=== PATIENT | male | born 1955 | race Caucasian/White ===

== ENCOUNTER → 2025-06-14 | Outpatient (CLI) | payer MEDICARE, SELFPAY ==
--- OUTSIDE RECORDS SUMMARY | 2025-05-25 07:09 | XMS RPT_ITS ---
Author Name Auto Generated Organization OH[facility] Care Team Providers Care Furnace Checker Name Role Phone ANNI MORALES DO Primary Care Unavailable HARPREET JEAN-BAPTISTE DO Attending Unavailable ANNI MORALES DO Primary Care Unavailable ANNI MORALES DO Attending Unavailable PROBLEMS DATE TYPE CONDITION / CODE ATTENDING STATUS [facility] 05/25/2025 Final Diagnosis (Discharge) Encounter for screening for cardiovascular disorders / Z13.6(ICD-10) ANNI MORALES DO [facility] 05/25/2025 Final Diagnosis (Discharge) Atherosclerosis of aorta / I70.0(ICD-10) ANNI MORALES DO [facility] 05/25/2025 Final Diagnosis (Discharge) Unspecified atherosclerosis of [place] arteries of extremities, bilateral legs / I70.203(ICD-10) ANNI MORALES DO [facility] 05/21/2025 Admitting Diagnosis Gross hematuria / R31.0(ICD-10) HARPREET JEAN-BAPTISTE DO [facility] PROCEDURES No Procedure Records Found RESULTS CBC Collected: 7:31 AM Status: F Source: [facility] TYPE CODE TESTS RESULT OUT OF RANGE REFERENCE UNITS LAB WBC(LOINC) WBC 3.3 Low 4.5-10.8 10 3/mcL LAB RBCCT(LOINC) RBC 4.66 4.50-6.00 10 6/mcL LAB HGB(LOINC) Hgb 14.8 13.0-17.5 G/dL LAB HCT(LOINC) Hct 43.3 40.0-52.0 % LAB MCV(LOINC) MCV 92.8 81.0-100.0 fL LAB MCH(LOINC) MCH 31.8 27.0-33.0 pg LAB MCHC(LOINC) MCHC 34.2 32.0-36.0 G/dL LAB RDW(LOINC) RDW 14.5 11.5-15.5 % LAB PLT(LOINC) Platelet 147 Low 150-450 10 3/mcL LAB MPV(LOINC) MPV 9.0 6.4-10.5 fL Performed By: #### LIPID, CB C, A1C, GFR, ANEU, FT4, ADIFF, PSA, TSHR, CMP #### [address] [address] .AUTO DIFF Collected: 05/25/2025 7:31 AM Status: F Source: [facility] TYPE CODE TESTS RESULT OUT OF RANGE REFERENCE UNITS LAB BURKE(LOINC) Neutrophil % 38.5 Low 50.0-75.0 % LAB LYM(LOINC) Lymphocyte % 44.3 High 20.0-40.0 % LAB MON(LOINC) Monocyte % 11.7 2.0-13.0 % LAB EO(LOINC) Eosinophil % 4.8 0.0-6.0 % LAB BAS(LOINC) Basophil % 0.7 0.0-2.5 % LAB ABLYM(LOINC) Lymphocyte, Absolute 1.5 0.9-4.3 10 3/mcL LAB TUAN(LOINC) Monocyte, Absolute 0.4 0.1-1.4 10 3/mcL LAB AEOS(LOINC) Eosinophil, Absolute 0.2 0.0-0.7 10 3/mcL LAB ABAS(LOINC) Basophil, Absolute 0.0 0.0-0.3 10 3/mcL Performed By: #### LIPID, CB C, A1C, GFR, ANEU, FT4, ADIFF, PSA, TSHR, CMP #### [address] [address] .NEUABS Collected: 7:31 AM Status: F Source: [facility] TYPE CODE TESTS RESULT OUT OF RANGE REFERENCE UNITS LAB ANEU(LOINC) Neutrophil, Absolute 1.3 Low 2.3-8.1 10 3/mcL Performed By: #### LIPID, CB C, A1C, GFR, ANEU, FT4, ADIFF, PSA, TSHR, CMP #### [id number] [place], [place] [address] A1C Collected: 7:31 AM Status: F Source: [facility] TYPE CODE TESTS RESULT OUT OF RANGE REFERENCE UNITS LAB A1C(LOINC) Hgb A1c 5.6 4.3-6.4 % LAB eAG(LOINC) Est Avg Glucose 114 mg/dL Result Comment: Estimated Av erage Glucose calculated by equation ((28.7xA1C)- 46.7) Estimated average glucose (eAG) is a calculated value from Hemoglobin A1C and is accounts receivable representative of the average blood glucose level in the last 2-3 month period. Normal range: less than 114 mg/dL Performed By: #### LIPID, CB C, A1C, GFR, ANEU, FT4, ADIFF, PSA, TSHR, CMP #### [address] [place], [place] [address] CMP Collected: 05/25/2025 7:31 AM Status: F Source: [facility] TYPE CODE TESTS RESULT OUT OF RANGE REFERENCE UNITS LAB GLU(LOINC) Glucose Level 98 80-115 mg/dL LAB NA(LOINC) Sodium Level 140 136-145 mmol/L LAB K(LOINC) Potassium Level 4.0 3.5-5.1 mmol/L LAB CL(LOINC) Chloride 105 98-107 mmol/L LAB CO2(LOINC) CO2 31 23-31 mmol/L LAB EBAL(LOINC) Electrolyte Balance 4.0 4.0-15.0 mEq/L LAB BUN(LOINC) BUN 23 High 7-18 mg/dL LAB CRE(LOINC) Creatinine Lvl (s) 0.88 0.67-1.17 mg/dL LAB BC(LOINC) BUN/Creatinine Ratio 26 7-27 ratio LAB CA(LOINC) Calcium Lvl 8.9 8.4-10.2 mg/dL LAB PROT(LOINC) Total Protein 6.7 6.4-8.2 G/dL LAB ALB(LOINC) Albumin Level 3.5 3.4-4.8 G/dL LAB GLB(LOINC) Globulin 3.2 2.7-4.4 G/dL LAB AG(LOINC) A/G Ratio 1.1 1.1-2.5 ratio LAB BILT(LOINC) Bili Total 0.6 0.2-1.0 mg/dL Result Comment: Use of this assay is not recommended for patients undergoing treatment with eltrombopag due to the potential for falsely elevated results. LAB AP(LOINC) Alk Phos 66 40-135 U/L LAB AST(LOINC) AST/SGOT 21 10-40 U/L LAB ALT(LOINC) ALT/SGPT 29 16-63 U/L Performed By: #### LIPID, CB C, A1C, GFR, ANEU, FT4, ADIFF, PSA, TSHR, CMP #### [address] [address] TSHR Collected: 7:31 AM Status: F Source: [facility] TYPE CODE TESTS RESULT OUT OF RANGE REFERENCE UNITS LAB TSH([facility]) TSH 6.58 High 0.36-3.74 mcIU/mL Performed By: #### LIPID, CB C, A1C, GFR, ANEU, FT4, ADIFF, PSA, TSHR, CMP #### [address] [address] .GFR Collected: 05/25/2025 7:31 AM Status: F Source: [facility] TYPE CODE TESTS RESULT OUT OF RANGE REFERENCE UNITS LAB eGFR(LOINC) Estimated Glomerular Filtration Rate 93 ml/min/1. 73sqm Result Comment: Stages of Chronic Kidney Disease (CKD) Stage Description eGFR(ml/min/1.73 sq.m.) CKD 1 Normal kidney function or >=90 normal kindney function with possible kidney damage (ex. Proteinuria) CKD 2 Kidney damage with mild loss 60-89 of kidney function CKD 3a Mild to moderate loss of kidney 45-59 function CKD 3b Moderate to severe loss of 30-44 of kindey function CKD 4 Severe loss of kidney function 15-29 CKD 5 Kidney failure <15 Note: (go live 2024) the eGFR calculation was updated to the 2020 CKD-EPI creatinine equation without a race factor to calculate the eGFR results. Performed By: #### LIPID, CB C, A1C, GFR, ANEU, FT4, ADIFF, PSA, TSHR, CMP #### [address] [address] PSA Collected: 05/25/2025 7:31 AM Status: F Source: [facility] TYPE CODE TESTS RESULT OUT OF RANGE REFERENCE UNITS LAB PSA(LOINC) Prostate Specific Antigen 0.43 0.00-4.00 ng/mL Performed By: #### LIPID, CB C, A1C, GFR, ANEU, FT4, ADIFF, PSA, TSHR, CMP #### [address] [address] LIPID Collected: 05/25/2025 7:31 AM Status: F Source: [facility] TYPE CODE TESTS RESULT OUT OF RANGE REFERENCE UNITS LAB CHOL(LOINC) Cholesterol 216 High 0-200 mg/dL Result Comment: Cholesterol Reference Interval: Less than 200 Desirable 200-239 Borderline high risk 240 and above High risk LAB TRIG(LOINC) Triglycerides 67 0-150 mg/dL Result Comment: Triglyceride Reference Interval: Less than 150 Normal 150-199 Borderline high risk 200-499 High risk 500 or higher Very high risk LAB HD(LOINC) HDL Cholesterol 52 40-60 mg/dL LAB LDL(LOINC) LDL Cholesterol 151 High 0-130 mg/dL Performed By: #### LIPID, CB C, A1C, GFR, ANEU, FT4, ADIFF, PSA, TSHR, CMP #### [address] [address] FT4 Collected: 7:31 AM Status: F Source: [facility] Order Comment: Ordered by Ginger orona TYPE CODE TESTS RESULT OUT OF RANGE REFERENCE UNITS LAB FT4(LOINC) Free T4 0.63 Low 0.76-1.46 ng/dL Performed By: #### LIPID, CB C, A1C, GFR, ANEU, FT4, ADIFF, PSA, TSHR, CMP #### [address] [address] US AORTA Observed: 05/25/2025 7:30 AM Status: F Source: [facility] ORIGINAL EXAMINATION: RETROPERITONEAL ULTRASOUND OF THE AORTA 05/25/2025 TECHNIQUE: Duplex ultrasound using B-mode/yi scaled imaging, Doppler spectral analysis and color flow Doppler was obtained of the aorta. COMPARISON: None HISTORY: ORDERING SYSTEM PROVIDED HISTORY: Reason for Exam: AAA screening, History of tobacco use > 100 cigs All images are recorded and archived. FINDINGS: Aorta: Proximal aorta measures 3.0 x 3.0 cm. Mid aorta measures 2.4 x 2.5 cm. Distal aorta measures 2.4 x 2.5 cm. Iliacs: Right common iliac measures 1.1 x 1.9 cm. Left common iliac measures 1.4 x 1.9 cm. Scattered atherosclerotic calcification affects the aorta and both common iliac arteries. IMPRESSION: 1. No evidence for abdominal aortic aneurysm. 2. Scattered atherosclerotic calcification affects the aorta and both common iliac arteries. Interpreted by: Ervin Pierce DO Preliminary Report By: Ervin Pierce DO Electronically signed By Ervin Pierce DO Dictated Date: 05/25/2025 2:34:44 PM Prelim Date: 05/25/2025 2:35:48 PM Sign Date: 05/25/2025 2:35:48 PM Ordering Provider: ANNI SHARMA Observed: 05/21/2025 3:33 PM Status: F Source: [facility] . MICRO - Microbiology PROCEDURE: Urine Culture [*1] SOURCE: Urine, Clean Catch BODY SITE: COLLECTED DATE/TIME: 05/21/2025 15:33 EDT RECEIVED DATE/TIME: 05/22/2025 18:10 EDT START DATE/TIME: 05/22/2025 18:10 EDT FREE TEXT SOURCE: FINAL REPORTS Final Report [] Verified Date/Time/Personnel: 05/24/2025 07:17 EDT 10,000 - 50,000 cfu/ml Mixed growth consistent with normal urogenital teena. PRELIMINARY REPORTS Preliminary Report [] Verified Date/Time/Personnel: 05/23/2025 08:44 EDT No growth to date Preliminary Report [] Verified Date/Time/Personnel: 05/22/2025 18:59 EDT Specimen received in lab. Performing Locations *1: This test was performed at: [facility], [address] [place] [address], [phone] , [place] ALLERGIES No Allergies Records Found ENCOUNTERS ADMIT/DISCHARGE ACCOUNT NUMBER ADMITTING ENCOUNTER CLASS LOC ATION SOURCE 05/25/2025/ 5 [id number] Ambulatory RANSOM MAINBuilding: [facility] 05/21/2025/ 5 [id number] Ambulatory RANSOM MAINBuilding: [facility] PAYERS ENCOUNTER GUARANTOR PAYER SUBSCRIBER SOURCE 05/25/2025 GUSTAVO [place]: [place] [address]Ejz: (HP) Primary Insurance:[facility] Number: [id number] Date:0799-18-97Fmnr Name:[address] [address]AH: GUSTAVO HSU: [id number] [place] [address]Ndk: (HP) (WP) [facility] 05/21/2025 GUSTAVO HSU: [id number] [place] [address]Npi: (HP) Primary Insurance:[facility] Number: [id number] Date:7531-13-66Oaxr Name:[address] [address]PT: GUSTAVO HSU: [id number] [place] [address]Bqp: (HP) (WP) [facility]
--- NOTE | 2025-06-14 17:26 | CT_ITS ---
PROCEDURE: CT ABD/PELVIS W/WO CONTRAST 06/14/2025 REASON FOR EXAM: GROSS HEMATURIA TECHNIQUE: Procedure Code: [id number] Modality: CT Procedure: CT ABD/PELVIS W/WO CONTRAST Coronal and Sagittal reconstruction series were provided. CONTRAST: Isovue 370 VOLUME: 100 mL One or more dose reduction techniques were used (e.g., Automated exposure control, adjustment of the mA and/or kV according to patient size, use of iterative reconstruction technique. RADIATION DOSE SUMMARY: CTDlvol: 48.3 mGy DLP: 1924.55 mGycm COMPARISON: None FINDINGS: Lung bases: Mild dependent atelectasis Liver: Liver is unremarkable aside from scattered simple hepatic cysts measuring up to 3 cm. No specific follow-up needed. Gallbladder: Unremarkable Spleen: Normal size. Pancreas: Normal size without evidence of mass surrounding inflammation or ductal dilation. Adrenals: Unremarkable Kidneys: Normal renal sizes. No hydronephrosis. Bladder: Bladder is unremarkable aside from impingement upon its inferior aspect from an enlarged prostate. Reproductive Organs: Prostate is enlarged measuring a proximally 5.2 x 3.5 x 4 cm and contains calcifications suggesting chronic prostatitis. Bowel: No evidence of obstruction, no CTA evidence of an acute inflammatory process. Retained stool noted throughout the colon. Appendix: Normal appendix seen on coronal recon images 54 through 57 Lymph nodes: No suspicious mesenteric or retroperitoneal adenopathy Vasculature: Peripheral calcifications in the abdominal aorta without aneurysm Peritoneum / Retroperitoneum: No free fluid or air Bones: Degenerative bony changes CT/CT Abd/Pelvis W/WO Contrast IMPRESSION: No obstructive uropathy, or suspicious solid renal lesion Scattered simple hepatic cysts, no specific follow-up needed. No free intraperitoneal fluid, air, or suspicious adenopathy, normal appendix v isualized Degenerative bony changes Reading Location: [id number]
== END | disposition home or self-care (01) ==
LOC: CT 17:17
PROVIDERS: Referring Provider Urology; Visit Provider Urology
DX: N40.1 Benign prostatic hyperplasia with lower urinary tract symptoms (principal); R31.0 Gross hematuria
CPT/HCPCS: 74178; Q9967

== ENCOUNTER → 2025-06-21 | Outpatient (CLI) | payer MEDICARE, SELFPAY ==
--- NOTE | 2025-06-21 08:50 | CYSPIN_PTH ---
PATIENT: GUSTAVO YUN LOC: [facility] U#:[id number] AGE/SX: 69/M ROOM: RE06/21/[address]: Dr. Jan Beebe MD : 1955 BED: DIS: 06/21/2025 SPEC #: [id number] RECD: 06/21/25 14:43 STATUS: CARLY REJohn #: [id number] HA: 06/21/25 08:[address]: Jan Beebe DEPT: CYTOLOGY RECD BY: Марина Walsh ENTERED: 06/22/25 08:34 SP TYPE: CYSPIN FL OTHR DR: Dr. Roberth Alarcon, DO Tissues: Urine Procedures: Pap Stain (control) Special Stain Group II Cytospin Fluid HEADER OPERATION: Not noted PRE-OP DIAGNOSIS: Gross hematuria TISSUE SUBMITTED: A- Urine for cytology - voided DIAGNOSIS CYTOLOGY A. Urine, voided (cytospin): * No malignant cells identified. * Scant cellularity. * Blood is present. CYTOLOGY STUDY Slides are reviewed. CYTOLOGY GROSS A. Received is 50 ml of yellow-cloudy fluid labeled with the patient's name and and designated per the requisition as urine. Submitted for cytology preparation. Mr 06/22/2025 CPT: 88316
--- NOTE | 2025-06-21 08:50 | CYSPIN_PTH ---
PATIENT: GUSTAVO YUN LOC: [facility] U#:[id number] AGE/SX: 69/M ROOM: RE06/21/[address]: Dr. Jan Beebe MD : 1955 BED: DIS: 06/21/2025 SPEC #: [id number] RECD: 06/21/25 14:43 STATUS: CARLY REJohn #: [id number] HA: 06/21/25 08:[address]: Jan Beebe DEPT: CYTOLOGY RECD BY: Марина Walsh ENTERED: 06/22/25 08:34 SP TYPE: CYSPIN FL OTHR DR: Dr. Roberth Alarcon, DO Tissues: Urine Procedures: Pap Stain (control) Special Stain Group II Cytospin Fluid HEADER OPERATION: Not noted PRE-OP DIAGNOSIS: Gross hematuria TISSUE SUBMITTED: A- Urine for cytology - voided DIAGNOSIS CYTOLOGY A. Urine, voided (cytospin): * No malignant cells identified. * Scant cellularity. * Blood is present. CYTOLOGY STUDY Slides are reviewed. CYTOLOGY GROSS A. Received is 50 ml of yellow-cloudy fluid labeled with the patient's name and and designated per the requisition as urine. Submitted for cytology preparation. Mr 06/22/2025 CPT: 41869
[2025-06-21 15:03] LABS: Cytology, Body Fluid / CSF SEE PATHOLOGY REPORT
== END | disposition home or self-care (01) ==
PROVIDERS: Referring Provider Urology; Visit Provider Urology
DX: R31.0 Gross hematuria (principal)
CPT/HCPCS: 88108; 88313

== ENCOUNTER 2025-06-30 12:57 | Day surgery (SDC) | payer MEDICARE, SELFPAY ==
[2025-06-30] VITALS (12 sets, daily range): BP systolic 114–156; BP diastolic 75–96; PULSE 40–58; RESP 12–18; TEMP 36.1–36.6; O2SAT 97–100; BMI 25.4
[2025-06-30] MEDS: Lactated Ringers 1,000 ML 15 ML IV (13:37)
--- NOTE | 2025-06-30 13:48 | PCM.PRE.AN2 ---
ASA Classification* ASA Classification ASA Classification: 2 (Smokes marijuana daily) Assessment & Plan Anesthesia* Anesthesia Assessment Anesthesia Assessment: Discussed sedation and/or anesthesia options, risks, benefits, and alternatives with patient/parents/legal guardian/POA. Questions invited. The patient/parents/legal guardian/POA seems to understand and agrees to proceed with anesthesia plan. Reviewed the physical assessment, medical history, allergy history and patient home medications list prior to surgery/procedure/anesthetic and documented any changes. Performed airway and anesthesia risk assessments. Anesthesia Type Anesthesia Type: General History Source History Obtained from:: Patient and Chart Anesthesia Focused Assessment* Temperature: 97.9 F Pulse Rate: 58 Blood Pressure: 114/79 Respiratory Rate: 18 Pulse Ox: 97 Oxygen Delivery Method: Room Air Airway Assessment Mouth opens: >3 cm Mallampati Score: II Teeth Condition: Dentures Neck Range of motion (ROM): Full ROM Labs Anesthesia Preop lab: CBC CHEMISTRY COAG Pre-Assessment Diagnosis/Proposed Procedure Planned Operative Procedure(s): (R) cysto w retrogrades, R ureteroscopy, laser, stent Anesthesia History Anesthesia History - hand launderer: Anesthesia History - hand launderer Hx Hospitalization No 06/24/25 14:16 Any Problems With Anesthesia No 06/24/25 14:16 Cholinesterase deficiency No 06/24/25 14:16 You/Your Family Experience No 06/24/25 14:16 fever (hyperthermia) with Relationship Recent Exposure to Contagious No 06/30/25 13:26 Disease Does patient have nerve No 06/24/25 14:16 stimulator Patient instructed to have device shut off --Does patient have Pacemaker No 06/30/25 13:26 or ICD? When Was Last Pacemaker Check QUESTION #4 FULL TEXT: You/Your Family Experience fever (hyperthermia) with Anesthesia Last Oral Intake Last Oral intake: Last Oral Intake NPO since 09:00 06/30/25 13:26 Meds taken in AM with sips of No 06/30/25 13:26 water? Meds patient instructed to take am of surgery PONV PONV - hand launderer: PONV - hand launderer Female No 06/24/25 14:16 HX of Motion Sickness No 06/24/25 14:16 HX of N/V After Surgery No 06/24/25 14:16 Non-Smoker Yes 06/24/25 14:16 Duration of Surgery greater No 06/24/25 14:16 than 60 minutes Number of Risk Factors 1 06/24/25 14:16 PONV Score Low Risk 06/24/25 14:16 Height & Weight Height & Weight: Anesthesia: Height & Weight Height 5 ft 8 in 06/30/25 13:26 Weight: 76 kg 06/30/25 13:26 Body Mass Index (BMI) 25.4 06/30/25 13:26 Respiratory Assessment Respiratory Assessment - hand launderer: Respiratory Tract Infection Hx - hand launderer Hx Respiratory Tract Infection No 06/24/25 14:16 STOP Sleep Apnea STOP Sleep Apnea - hand launderer: STOP Sleep Apnea - hand launderer Hx Hypertension No 06/24/25 14:16 Hx Sleep Apnea No 06/24/25 14:16 CPAP BIPAP Do you snore loudly (louder Yes 06/24/25 14:16 than talking or can be heard Do you often feel tired/ No 06/24/25 14:16 fatigued/ sleepy during daytime? Has anyone observed you stop No 06/24/25 14:16 breathing during sleep? STOP Results Negative 06/24/25 14:16 QUESTION #5 FULL TEXT : Do you snore loudly (louder than talking or can be heard through closed doors)? Tobacco Use History Tobacco Use History - hand launderer: Tobacco Use History - hand launderer Tobacco Use Smoking Status Current every day smoker 06/24/25 14:16 Hx Tobacco Use No 06/24/25 14:16 Years Smoking Packs Smoked per Day Smoking Cessation Date was No - quit smoking greater 06/24/25 14:16 within the last 15 years than 15 years ago Hx Smoking Cessation Date 09/16/87 06/24/25 14:16 Hx Smoking Cessation No 06/24/25 14:16 Counseling Hematologic Medial History Hematologic Hx - hand launderer: Hematologic Medical Hx - biological science aide Hx of Blood Transfusion No 06/24/25 14:16 Hx of Transfusion in last 3 No 06/24/25 14:16 Months Date of Last Transfusion (if within last 3 months) Ever experience any problems No 06/24/25 14:16 with transfusion(s)? Specify any problems Hx of Preganancy in last 3 N/A 06/24/25 14:16 Months Nurse Filling Out Transfusion NBUCHER 06/24/25 14:16 & Questions: Date: 06/24/25 06/24/25 14:16 Time: 14:17 06/24/25 14:16 Patient unable to answer at this time (ie. confused, unrespo /Reproduction History /Reproductive History - hand launderer: /Reproductive Hx- hand launderer Hx Now No 06/24/25 14:16 Gestational Age (in weeks): EDC: Hx Hx Para Hx Section SAB No 06/24/25 14:16 Active Medications Active Medications: Current Medications Generic Name Dose Route Start Last Admin Trade Name Freq PRN Reason Stop Dose Admin Cefazolin Sodium 2 gm/ Sodium 110 mls @ 200 mls/hr 06/30/25 15:15 Chloride IV 06/30/25 15:47 INTRAOP ONE Lactated Ringer's 1,000 mls @ 15 mls/hr 06/30/25 13:15 06/30/25 13:37 IV 15 mls/hr .Q48H MONICA Administration PFSH Medical History Smoker Wears dentures Wears glasses Alcohol use Marijuana use Arthritis BPH (benign prostatic hyperplasia) Prostate disease Former smoker Home Medications Medication Instructions Recorded Last Taken Type NK 06/24/25 Unknown History Allergy/AdvReac Type Severity Reaction Status Date / Time No Known Allergies Allergy Verified 06/30/25 13:23 Surgical History History of surgery on lower extremity (~2011) History of cystoscopy (06/01/25) Social History Smoking Status: Current every day smoker tobacco type: pipe Review of Systems (Anesthesia) ROS Narrative System reviewed and no additional complaints, except as documented.
--- NOTE | 2025-06-30 15:15 | BLA_PTH ---
PATIENT: GUSTAVO YUN LOC: [facility] U#:[id number] AGE/SX: 69/M ROOM: RE06/30/[address]: Dr. Jan Beebe MD : 1955 BED: DIS: 06/30/2025 SPEC #: [id number] RECD: 07/01/25 07:58 STATUS: CARLY REJohn #: [id number] HA: 06/30/25 15:[address]: Jan Beebe DEPT: SURGICAL PATHOLOGY RECD BY: Alex Kelsey ENTERED: 07/01/25 10:45 SP TYPE: BLADDER BX OTHR DR: Dr. Roberth Alarcon, DO Tissues: A - Urinary bladder, NOS Procedures: Surgery Specimen Level V HEADER OPERATION: Cysto with bilateral retrogrades, r ureteroscopy, stent, right PRE-OP DIAGNOSIS: Right kidney stone TISSUE SUBMITTED: A- Bladder mass / tumor MICROSCOPIC DIAGNOSIS A. Bladder, transurethral resection bladder tumor: * Invasive, high grade urothelial carcinoma. * Lamina propria involved. * Muscularis propria identified and involved. * Lymphovascular invasion noted. MICROSCOPIC DESCRIPTION Slides are reviewed. GROSS DESCRIPTION A. Received in formalin labeled with the patient's name and date of . Designated as " bladder mass/tumor" is a <1 g, 2.5 x 1.8 x 0.3 cm aggregate of nino to light brown cylindrical, cauterized tissue fragments and clotted blood. Entirely submitted in [address] 07/01/2025 CPT:23981
[2025-06-30] MEDS: Lidocaine 1% (5 ml sdv) 5 ML Vial IV (15:46)
[2025-06-30] MEDS: Cefazolin 1 GM/5 ML Vial 2 GM IV (15:46)
[2025-06-30] MEDS: fentaNYL 100 MCG/2 ML Ampul IV (15:55)
--- NOTE | 2025-06-30 16:24 | PCM.DC ---
Discharge Instructions DC O2, CPAP, BIPAP needs Home O2 Discharge instructions: No Dressing / Incision Discharge Activity: Return to Normal Activity and May Not Drive (while taking narcotic pain medications.) Dressing / Incision Call your doctor if you observe: Fever of 101 or Higher Follow Up Care Please Follow Up With: Jan Beebe MD When: Call [phone] for an appointment Test Results: Test results from this visit will be discussed in further detail at your follow-up appointment, if applicable. Discharge Plan Admission Primary Reason for Your Visit: bladder tumor Attending Provider: Jan Beebe Primary Care Provider: Roberth Alarcon Instructions Print Language: Hungarian Discharge Orders/Prescriptions Prescriptions: New ciprofloxacin HCl [Cipro] 500 mg tablet 500 mg PO BID Qty: 6 0RF oxycodone 5 mg tablet 5 mg PO Q6H PRN (Reason: pain) 7 Days Qty: 14 0RF Referrals / Follow Up: Jan Beebe MD [Med Staff - Active Staff, Urology] Roberth Alarcon DO [Primary Care Provider, Medical] Disposition Disposition (needs filled in before D/C Order can be placed): Home, Self Care
--- NOTE | 2025-06-30 16:25 | PCM.OPRPT ---
Operative Report (Standard) Operative Information Date of Procedure: 06/30/25 Pre-Operative Diagnosis: Bleeding from the bladder Post-Operative Diagnosis: Same bladder tumor over right ureteral orifice Surgery/Procedure Performed: Transurethral resection of a tumor over the right ureteral orifice, right retrograde pyelogram, right ureteroscopy, right stent placement, left retrograde pyelogram outside sales representative insurance: No Type of Anesthesia: General RN Documented Start/Stop Times: Operation Date: 06/30/25 15:15 Case Time Into Pre-Op 06/30/25 13:04 Out of Pre-Op 06/30/25 15:38 Anesthesia Start 06/30/25 15:42 Into Room 06/30/25 15:42 Procedure Start 06/30/25 15:52 Procedure End 06/30/25 16:21 Procedure Start Time: 15:52 Procedure Stop Time: 16:25 Select all DRAINS/GRAFTS/IMPLANTS that apply: Drains Drain details: Stent on the right side Estimated Blood Loss: Minimal Specimen collected: Yes Description of specimen(s) removed: Bladder tumor Description of surgery: This is a 69-year-old male presented to my office with gross hematuria I did a cystoscopy in the office but I really could not identify any lesions he did have a lot of bleeding at the time we did a CAT scan again came back fairly normal so somewhat unusual that everything looked normal and the had a CAT scan even the urine cytology was sent and this came back normal. But the bleeding continued so recommended we take him to surgery for bilateral ureteroscopy retrograde pyelograms and inspection of the bladder again. Patient was taken back to the operating room and a smooth duction of anesthesia he was placed in dorsolithotomy position within the bladder with a 21 Korean rigid cystourethroscope the entire length urethra was normal the prostate was normal the bulbar urethra is normal sphincter was intact bulbar urethra was intact the prostate was not obstructive once inside the bladder immediately there was like a frondular looking tumors looking area over the right ureteral orifice this is very suspicious for tumor after all of the blood clots have been evacuated out I cannulated the left ureteral orifice did a retrograde pyelogram this came back looking normal I then tried to cannulate the right ureter orifice but is very difficult could not find it looked like the tumor was overlying the ureteral orifice or obstruct obstructing the view so I switched over to the resectoscope using a median loop that I resected this tumor it was about 2 cm x 2 cm in size for the resection after the tumor was resected then I could see the ureteral orifice the resection patient pieces were sent off as a pathology specimen appeared to be a noninvasive tumor just overlying the ureteral orifice after that was resected then I did a retrograde pyelogram in the right side this looked normal then over the wire went in with the ureteroscope inspected the upper pole lower pole midpole and all the way down the ureter no tumors along the course of the ureter so looks like the tumor was only covering the right ureteral orifice which was resected completely and cauterized I then put a wire up in the right side put a stent in drain the patient's bladder taken back out of anesthesia and I will see him back in a few weeks for checkup and we will have the stent removed in a few weeks. Surgical Findings: Tumor over the right ureteral orifice Complications Complications: No Admit VTE Documentation VTE Present on Admission: No VTE Mechan Device Prophylaxis: SCD's VTE Pharm Prophylaxis ordered?: No
--- NOTE | 2025-06-30 16:34 | PCM.POST.ANE ---
Anesthesia: Postop Eval I Current Vital Signs Temperature: 97 F Pulse Rate: 56 Blood Pressure: 142/96 Respiratory Rate: 12 Pulse Ox: 99 Oxygen Delivery Method: Room Air Assessment Airway patent: Yes Spontaneous unlabored respirations: Yes Mental status: Calm and Asleep nausea: No Vomiting: No Anesthesia Complication: No Fluid Hydration Crystalloid volume administer (ml): 600 Total IV fluid infused: 600 Progress Note Anesthesia document: Postop Eval 1 completed: Yes
[2025-06-30] MEDS: Ketorolac 30 MG/ML Syringe IV (17:19)
--- NOTE | 2025-06-30 18:04 | POSTOPAN2_ITS ---
Anesthesia Postop Eval I Sum Postop Eval Completion status Anesthesia document: Postop Eval 1 completed: Yes Anesthesia Postop Eval I Summary Anesthesia Postop Eval I Summary: Anesthesia Postop Eval I: Assessment Summary Airway patent Yes 06/30/25 16:34 DEICER INSPECTOR PNEUMATIC.SHOF Spontaneous unlabored Yes 06/30/25 16:34 DEICER INSPECTOR PNEUMATIC.SHOF respirations Mental status Calm,Asleep 06/30/25 16:34 DEICER INSPECTOR PNEUMATIC.SHOF nausea No 06/30/25 16:34 DEICER INSPECTOR PNEUMATIC.SHOF Vomiting No 06/30/25 16:34 DEICER INSPECTOR PNEUMATIC.SHOF Anesthesia Postop Eval I: Fluid Summary Crystalloid volume administer 600 06/30/25 16:34 DEICER INSPECTOR PNEUMATIC.SHOF (ml) Colloids volume administered ( ml) Blood Product volume administered (ml) Total IV fluid infused 600 06/30/25 16:34 DEICER INSPECTOR PNEUMATIC.SHOF Anesthesia Postop Eval I: Summary Notes Anesthesia Complication No 06/30/25 16:34 DEICER INSPECTOR PNEUMATIC.SHOF Anesthesia Complication Comment: Post-operative progress note Anesthesia: Postop Eval II Evaluation Mental status: Awake and Calm Pain Level: 1 nausea: No Vomiting: No Complications Anesthesia Complication: No
--- NOTE | 2025-06-30 18:04 | PCM.POSTANE2 ---
Anesthesia Postop Eval I Sum Postop Eval Completion status Anesthesia document: Postop Eval 1 completed: Yes Anesthesia Postop Eval I Summary Anesthesia Postop Eval I Summary: Anesthesia Postop Eval I: Assessment Summary Airway patent Yes 06/30/25 16:34 SURGICAL TERRITORY MANAGER.SHOF Spontaneous unlabored Yes 06/30/25 16:34 SURGICAL TERRITORY MANAGER.SHOF respirations Mental status Calm,Asleep 06/30/25 16:34 SURGICAL TERRITORY MANAGER.SHOF nausea No 06/30/25 16:34 SURGICAL TERRITORY MANAGER.SHOF Vomiting No 06/30/25 16:34 SURGICAL TERRITORY MANAGER.SHOF Anesthesia Postop Eval I: Fluid Summary Crystalloid volume administer 600 06/30/25 16:34 SURGICAL TERRITORY MANAGER.SHOF (ml) Colloids volume administered ( ml) Blood Product volume administered (ml) Total IV fluid infused 600 06/30/25 16:34 SURGICAL TERRITORY MANAGER.SHOF Anesthesia Postop Eval I: Summary Notes Anesthesia Complication No 06/30/25 16:34 SURGICAL TERRITORY MANAGER.SHOF Anesthesia Complication Comment: Post-operative progress note Anesthesia: Postop Eval II Evaluation Mental status: Awake and Calm Pain Level: 1 nausea: No Vomiting: No Complications Anesthesia Complication: No
== END 2025-06-30 17:58 | disposition home or self-care (01) ==
LOC: SDC 13:00 → AC 13:01
PROVIDERS: Referring Provider Urology; Visit Provider Urology
PROC: 0TJ98ZZ Inspection of Ureter, Via Natural or Artificial Opening Endoscopic (ICD-10-PCS; CPT 52352; principal; 2025-06-30 15:00)
DX: C67.6 Malignant neoplasm of ureteric orifice (principal); N40.1 Benign prostatic hyperplasia with lower urinary tract symptoms; R31.0 Gross hematuria
CPT/HCPCS: 52235; 00912; 76000; 88305; 88307; C1769; C2617; J2405

== ENCOUNTER 2025-07-21 13:16 | Day surgery (SDC) | payer MEDICARE, SELFPAY ==
--- NOTE | 2025-07-19 09:45 | PAT.ANESEVAL ---
Pre-Assessment Diagnosis/Proposed Procedure Planned Operative Procedure(s): (N/A) [facility] History Anesthesia History - marriage and family counselor: Anesthesia History - marriage and family counselor Hx Hospitalization No 07/16/25 14:30 Any Problems With Anesthesia No 07/16/25 14:30 Cholinesterase deficiency No 07/16/25 14:30 You/Your Family Experience No 07/16/25 14:30 fever (hyperthermia) with Relationship Recent Exposure to Contagious No 06/30/25 13:26 Disease Does patient have nerve No 07/16/25 14:30 stimulator Patient instructed to have device shut off --Does patient have Pacemaker or ICD? When Was Last Pacemaker Check QUESTION #4 FULL TEXT: You/Your Family Experience fever (hyperthermia) with Anesthesia Last Oral Intake Last Oral intake: Last Oral Intake NPO since Meds taken in AM with sips of water? Meds patient instructed to take am of surgery PONV PONV - marriage and family counselor: PONV - marriage and family counselor Female No 07/16/25 14:30 HX of Motion Sickness No 07/16/25 14:30 HX of N/V After Surgery No 07/16/25 14:30 Non-Smoker No 07/16/25 14:30 Duration of Surgery greater Yes 07/16/25 14:30 than 60 minutes Number of Risk Factors 1 07/16/25 14:30 PONV Score Low Risk 07/16/25 14:30 Height & Weight Height & Weight: Anesthesia: Height & Weight Height 5 ft 8 in 06/30/25 13:26 Respiratory Assessment Respiratory Assessment - marriage and family counselor: Respiratory Tract Infection Hx - marriage and family counselor Hx Respiratory Tract Infection No 07/16/25 14:30 STOP Sleep Apnea STOP Sleep Apnea - marriage and family counselor: STOP Sleep Apnea - marriage and family counselor Hx Hypertension No 07/16/25 14:30 Hx Sleep Apnea No 07/16/25 14:30 CPAP BIPAP Do you snore loudly (louder No 07/16/25 14:30 than talking or can be heard Do you often feel tired/ No 07/16/25 14:30 fatigued/ sleepy during daytime? Has anyone observed you stop No 07/16/25 14:30 breathing during sleep? STOP Results Negative 07/16/25 14:30 QUESTION #5 FULL TEXT : Do you snore loudly (louder than talking or can be heard through closed doors)? Tobacco Use History Tobacco Use History - marriage and family counselor: Tobacco Use History - marriage and family counselor Tobacco Use Smoking Status Current every day smoker 07/16/25 14:30 Hx Tobacco Use No 07/16/25 14:30 Years Smoking Packs Smoked per Day Smoking Cessation Date was within the last 15 years Hx Smoking Cessation Date 09/16/87 07/16/25 14:30 Hx Smoking Cessation No 07/16/25 14:30 Counseling Hematologic Medial History Hematologic Hx - marriage and family counselor: Hematologic Medical Hx - admitting coordinator Hx of Blood Transfusion No 07/16/25 14:30 Hx of Transfusion in last 3 No 07/16/25 14:30 Months Date of Last Transfusion (if within last 3 months) Ever experience any problems No 07/16/25 14:30 with transfusion(s)? Specify any problems Hx of Preganancy in last 3 N/A 07/16/25 14:30 Months Nurse Filling Out Transfusion NBUCHER 07/16/25 14:30 & Questions: Date: 07/16/25 07/16/25 14:30 Time: 14:30 07/16/25 14:30 Patient unable to answer at this time (ie. confused, unrespo /Reproduction History /Reproductive History - marriage and family counselor: /Reproductive Hx- marriage and family counselor Hx Now No 07/16/25 14:30 Gestational Age (in weeks): EDC: Hx Hx Para Hx Section SAB No 07/16/25 14:30 PFSH Medical History Smoker Wears dentures Wears glasses Alcohol use Marijuana use Arthritis BPH (benign prostatic hyperplasia) Prostate disease Former smoker Home Medications Medication Instructions Recorded Last Taken Type NK 07/16/25 Unknown History Allergy/AdvReac Type Severity Reaction Status Date / Time No Known Allergies Allergy Verified 07/16/25 14:29 Surgical History History of surgery on lower extremity (~2011) History of cystoscopy (06/01/25) Social History Smoking Status: Current every day smoker tobacco type: pipe Audit: Pertinent Findings Pertinent Findings EKG Perinent findings: 07/16/2025. Sinus rhythm 62 bpm. Borderline prolonged PA interval. Left atrial enlargement. Recommendation Anesthesia Recommendation Anesthesia recommendation: OPTIMIZED for anesthesia
[2025-07-21] VITALS (9 sets, daily range): BP systolic 118–144; BP diastolic 73–102; PULSE 55–73; RESP 12–16; TEMP 36.4–36.8; O2SAT 95–100; BMI 26.1
[2025-07-21] MEDS: Lactated Ringers 1,000 ML 15 ML IV (13:49)
--- NOTE | 2025-07-21 14:05 | PCM.PRE.AN2 ---
ASA Classification* ASA Classification ASA Classification: 3 (Patient had significant bradycardia in PACU during previous anesthetic. Smoker, marijuana daily, BPH, 3 beers/day ) Assessment & Plan Anesthesia* Anesthesia Assessment Anesthesia Assessment: Discussed sedation and/or anesthesia options, risks, benefits, and alternatives with patient/parents/legal guardian/POA. Questions invited. The patient/parents/legal guardian/POA seems to understand and agrees to proceed with anesthesia plan. Reviewed the physical assessment, medical history, allergy history and patient home medications list prior to surgery/procedure/anesthetic and documented any changes. Performed airway and anesthesia risk assessments. Anesthesia Type Anesthesia Type: General History Source History Obtained from:: Patient and Chart Anesthesia Focused Assessment* Temperature: 98.2 F Pulse Rate: 70 Blood Pressure: 118/73 Respiratory Rate: 12 Pulse Ox: 95 Oxygen Delivery Method: Room Air Airway Assessment Mouth opens: >3 cm Mallampati Score: II Teeth Condition: Intact Neck Range of motion (ROM): Full ROM Labs Anesthesia Preop lab: CBC CHEMISTRY COAG Pre-Assessment Diagnosis/Proposed Procedure Planned Operative Procedure(s): (N/A) [facility] Anesthesia History Anesthesia History - brush loader and handle attacher: Anesthesia History - brush loader and handle attacher Hx Hospitalization No 07/16/25 14:30 Any Problems With Anesthesia No 07/16/25 14:30 Cholinesterase deficiency No 07/16/25 14:30 You/Your Family Experience No 07/16/25 14:30 fever (hyperthermia) with Relationship Recent Exposure to Contagious No 07/21/25 13:42 Disease Does patient have nerve No 07/16/25 14:30 stimulator Patient instructed to have device shut off --Does patient have Pacemaker No 07/21/25 13:42 or ICD? When Was Last Pacemaker Check QUESTION #4 FULL TEXT: You/Your Family Experience fever (hyperthermia) with Anesthesia Last Oral Intake Last Oral intake: Last Oral Intake NPO since 10:00 07/21/25 13:42 Meds taken in AM with sips of No 07/21/25 13:42 water? Meds patient instructed to take am of surgery PONV PONV - brush loader and handle attacher: PONV - brush loader and handle attacher Female No 07/16/25 14:30 HX of Motion Sickness No 07/16/25 14:30 HX of N/V After Surgery No 07/16/25 14:30 Non-Smoker No 07/16/25 14:30 Duration of Surgery greater Yes 07/16/25 14:30 than 60 minutes Number of Risk Factors 1 07/16/25 14:30 PONV Score Low Risk 07/16/25 14:30 Height & Weight Height & Weight: Anesthesia: Height & Weight Height 5 ft 8 in 07/21/25 13:42 Weight: 78 kg 07/21/25 13:42 Body Mass Index (BMI) 26.1 07/21/25 13:42 Respiratory Assessment Respiratory Assessment - brush loader and handle attacher: Respiratory Tract Infection Hx - brush loader and handle attacher Hx Respiratory Tract Infection No 07/16/25 14:30 STOP Sleep Apnea STOP Sleep Apnea - brush loader and handle attacher: STOP Sleep Apnea - brush loader and handle attacher Hx Hypertension No 07/16/25 14:30 Hx Sleep Apnea No 07/16/25 14:30 CPAP BIPAP Do you snore loudly (louder No 07/16/25 14:30 than talking or can be heard Do you often feel tired/ No 07/16/25 14:30 fatigued/ sleepy during daytime? Has anyone observed you stop No 07/16/25 14:30 breathing during sleep? STOP Results Negative 07/16/25 14:30 QUESTION #5 FULL TEXT : Do you snore loudly (louder than talking or can be heard through closed doors)? Tobacco Use History Tobacco Use History - brush loader and handle attacher: Tobacco Use History - brush loader and handle attacher Tobacco Use Smoking Status Current every day smoker 07/16/25 14:30 Hx Tobacco Use No 07/16/25 14:30 Years Smoking Packs Smoked per Day Smoking Cessation Date was within the last 15 years Hx Smoking Cessation Date 09/16/87 07/16/25 14:30 Hx Smoking Cessation No 07/16/25 14:30 Counseling Hematologic Medial History Hematologic Hx - brush loader and handle attacher: Hematologic Medical Hx - gas pumper Hx of Blood Transfusion No 07/16/25 14:30 Hx of Transfusion in last 3 No 07/16/25 14:30 Months Date of Last Transfusion (if within last 3 months) Ever experience any problems No 07/16/25 14:30 with transfusion(s)? Specify any problems Hx of Preganancy in last 3 N/A 07/16/25 14:30 Months Nurse Filling Out Transfusion NBUCHER 07/16/25 14:30 & Questions: Date: 07/16/25 07/16/25 14:30 Time: 14:30 07/16/25 14:30 Patient unable to answer at this time (ie. confused, unrespo /Reproduction History /Reproductive History - brush loader and handle attacher: /Reproductive Hx- brush loader and handle attacher Hx Now No 07/16/25 14:30 Gestational Age (in weeks): EDC: Hx Hx Para Hx Section SAB No 07/16/25 14:30 Does the father of the baby or his family experience fever w Father of the baby Malignant Hypertension history comment Active Medications Active Medications: Current Medications Generic Name Dose Route Start Last Admin Trade Name Freq PRN Reason Stop Dose Admin Cefazolin Sodium 2 gm/ Sodium 110 mls @ 200 mls/hr 07/21/25 15:35 Chloride IV 07/21/25 16:07 INTRAOP ONE Mitomycin 40 mg/ N/A 40 mls @ 2,400 mls/hr 07/21/25 15:35 INSTILLAT 07/21/25 15:36 X1 ONE Lactated Ringer's 1,000 mls @ 15 mls/hr 07/21/25 13:30 07/21/25 13:49 IV 15 mls/hr .Q48H MONICA Administration PFSH Medical History Smoker Wears dentures Wears glasses Alcohol use Marijuana use Arthritis BPH (benign prostatic hyperplasia) Prostate disease Former smoker Home Medications Medication Instructions Recorded Last Taken Type NK 07/16/25 Unknown History Allergy/AdvReac Type Severity Reaction Status Date / Time No Known Allergies Allergy Verified 07/21/25 13:41 Surgical History History of surgery on lower extremity (~2011) History of cystoscopy (06/01/25) Social History Smoking Status: Current every day smoker tobacco type: pipe Review of Systems (Anesthesia) ROS Narrative System reviewed and no additional complaints, except as documented. Physical Exam Const alert, oriented x3 and average body habitus Resp normal respiratory effort, normal air movement and clear to auscultation bilaterally Cardio regular rate, regular rhythm, no murmurs and diaphoretic
[2025-07-21] MEDS: Cefazolin 1 GM/5 ML Vial 2 GM IV (14:26)
[2025-07-21] MEDS: Lidocaine 1% (5 ml sdv) 5 ML Vial IV (14:28)
[2025-07-21] MEDS: Midazolam 2 MG/2 ML Syringe IV (14:28)
[2025-07-21] MEDS: fentaNYL 100 MCG/2 ML Ampul 75 MCG IV (14:37)
--- NOTE | 2025-07-21 14:54 | DCINST_ITS ---
Discharge Instructions DC O2, CPAP, BIPAP needs Home O2 Discharge instructions: No Dressing / Incision Discharge Activity: Return to Normal Activity and May Not Drive (while taking narcotic pain medications.) Dressing / Incision Call your doctor if you observe: Fever of 101 or Higher Follow Up Care Please Follow Up With: Jan Beebe MD When: Call [phone] for an appointment Test Results: Test results from this visit will be discussed in further detail at your follow- up appointment, if applicable. Discharge Plan Admission Primary Reason for Your Visit: resection of bladder tumor, remove stent Attending Provider: Jan Beebe Primary Care Provider: Roberth Alarcon Instructions Print Language: Polish Discharge Orders/Prescriptions Prescriptions: New ciprofloxacin HCl [Cipro] 500 mg tablet 500 mg PO BID Qty: 10 0RF oxycodone 5 mg tablet 5 mg PO Q6H PRN (Reason: pain) 7 Days Qty: 10 0RF Referrals / Follow Up: Jan Beebe MD [Med Staff - Active Staff, Urology] Roberth Alarcon DO [Primary Care Provider, Medical] Disposition Disposition (needs filled in before D/C Order can be placed): Home, Self Care
--- NOTE | 2025-07-21 14:55 | OP.PCM_ITS ---
Operative Report (Standard) Operative Information Date of Procedure: 07/21/25 Pre-Operative Diagnosis: Bladder cancer Post-Operative Diagnosis: The same Surgery/Procedure Performed: Cystoscopy and removal of stent and transurethral resection of bladder mass, reresection breaking machine operator: No Type of Anesthesia: General RN Documented Start/Stop Times: Operation Date: 07/21/25 15:35 Case Time Into Pre-Op 07/21/25 13:25 Out of Pre-Op 07/21/25 14:18 Anesthesia Start 07/21/25 14:23 Into Room 07/21/25 14:23 Procedure Start 07/21/25 14:35 Procedure End 07/21/25 14:50 Procedure Start Time: 14:35 Procedure Stop Time: 14:55 Select all DRAINS/GRAFTS/IMPLANTS that apply: Drains Drain details: 20 [place]uran catheter Estimated Blood Loss: Minimal Specimen collected: Yes Description of specimen(s) removed: Deeper muscle biopsies Description of surgery: This is a 69-year-old male presenting with gross hematuria workup in the office was negative cystoscopy was bloody could not quite see CAT scan was normal then took him to the operating room and appeared to have a tumor that looked to be sessile and flat around the right ureteral orifice I did a resection and placed a stent on the right side and then some for follow-up surprisingly the tumor came back invasive bladder cancer which was not what I expected I expected noninvasive bladder cancer reviewed the pathology report so at this point I think the safest thing to do is taken back to surgery to reresect the area and see if there is any residual tumor. Also possibly remove the stent. Patient is taken back to the operating room after induction of anesthesia he is placed in dorsolithotomy position went in the bladder with a 24 [place]uran noncontinuous flow bipolar Olympus resectoscope upon inspecting the bladder there was no obvious tumors there was some bullous edema where the stent was in where the resection site was done the ureteral orifice looks like it is nice and healed up so I decided to remove the stent so I grabbed it with a grasper and remove this and then after removing the stent and I resected the area I did not really go fairly deep but I got tissue at least 2 mm deeper all over the resection site and this was sent off as a specimen I then cauterized the area to obtain hemostasis again on visual expect inspection did not look like any residual cancer in his bladder it looks like regular resection site that is healing up will be good did biopsies and that and then did get specimen to look at I then placed a catheter in the bladder we did the Mitomycin-C postresection instillation and we will keep this in the bladder for an hour he was taken back to the PACU in stable condition and he will have a voiding trial before going home. Surgical Findings: Appears to be normal bladder with healing from prior resection no obvious tumor seen resection of prior resection site was taken Complications Complications: No
--- NOTE | 2025-07-21 15:05 | PCM.POST.ANE ---
Anesthesia: Postop Eval I Current Vital Signs Temperature: 98 F Pulse Rate: 73 Blood Pressure: 144/102 Respiratory Rate: 16 Pulse Ox: 97 Assessment Airway patent: Yes Spontaneous unlabored respirations: Yes nausea: No Vomiting: No Anesthesia Complication: No Fluid Hydration Crystalloid volume administer (ml): 700 Total IV fluid infused: 700 Progress Note Anesthesia document: Postop Eval 1 completed: Yes
--- NOTE | 2025-07-21 15:34 | POSTOPAN2_ITS ---
Anesthesia Postop Eval I Sum Postop Eval Completion status Anesthesia document: Postop Eval 1 completed: Yes Anesthesia Postop Eval I Summary Anesthesia Postop Eval I Summary: Anesthesia Postop Eval I: Assessment Summary Airway patent Yes 07/21/25 15:05 AGRICULTURE [email or web address] Spontaneous unlabored Yes 07/21/25 15:05 AGRICULTURE [email or web address] respirations Mental status nausea No 07/21/25 15:05 AGRICULTURE [email or web address] Vomiting No 07/21/25 15:05 AGRICULTURE [email or web address] Anesthesia Postop Eval I: Fluid Summary Crystalloid volume administer 700 07/21/25 15:05 AGRICULTURE [email or web address] (ml) Colloids volume administered ( ml) Blood Product volume administered (ml) Total IV fluid infused 700 07/21/25 15:05 AGRICULTURE [email or web address] Anesthesia Postop Eval I: Summary Notes Anesthesia Complication No 07/21/25 15:05 AGRICULTURE [email or web address] Anesthesia Complication Comment: Post-operative progress note Anesthesia: Postop Eval II Evaluation Mental status: Awake Pain Level: 0 nausea: No Vomiting: No Complications Anesthesia Complication: No
--- NOTE | 2025-07-21 15:34 | PCM.POSTANE2 ---
Anesthesia Postop Eval I Sum Postop Eval Completion status Anesthesia document: Postop Eval 1 completed: Yes Anesthesia Postop Eval I Summary Anesthesia Postop Eval I Summary: Anesthesia Postop Eval I: Assessment Summary Airway patent Yes 07/21/25 15:05 WIRE FRAME [email or web address] Spontaneous unlabored Yes 07/21/25 15:05 WIRE FRAME [email or web address] respirations Mental status nausea No 07/21/25 15:05 WIRE FRAME [email or web address] Vomiting No 07/21/25 15:05 WIRE FRAME [email or web address] Anesthesia Postop Eval I: Fluid Summary Crystalloid volume administer 700 07/21/25 15:05 WIRE FRAME [email or web address] (ml) Colloids volume administered ( ml) Blood Product volume administered (ml) Total IV fluid infused 700 07/21/25 15:05 WIRE FRAME [email or web address] Anesthesia Postop Eval I: Summary Notes Anesthesia Complication No 07/21/25 15:05 WIRE FRAME [email or web address] Anesthesia Complication Comment: Post-operative progress note Anesthesia: Postop Eval II Evaluation Mental status: Awake Pain Level: 0 nausea: No Vomiting: No Complications Anesthesia Complication: No
--- NOTE | 2025-07-21 15:35 | BLA_PTH ---
PATIENT: GUSTAVO YUN LOC: [facility] [place] U#:[id number] AGE/SX: 69/M ROOM: RE07/21/[address]: Dr. Jan Beebe MD : 1955 BED: DIS: 07/21/2025 SPEC #: [id number] RECD: 07/22/25 07:23 STATUS: CARLY REJohn #: [id number] HA: 07/21/25 15:[address]: Jan Beebe DEPT: SURGICAL PATHOLOGY RECD BY: Alex Kelsey ENTERED: 07/22/25 11:41 SP TYPE: BLADDER BX OTHR DR: Dr. Roberth Alarcon, DO Tissues: A - Urinary bladder, NOS Procedures: Surgery Specimen Level V HEADER OPERATION: Cysto, transurethral resection bladder tumor PRE-OP DIAGNOSIS: Bladder mass TISSUE SUBMITTED: A- Bladder tumor MICROSCOPIC DIAGNOSIS A. Bladder, transurethral resection bladder tumor: - Invasive, high grade carcinoma, consistent with urothelial origin - see note. - Lamina propria involved. - Muscularis propria present and involved. Note: Ulceration and necrosis noted. Focal carcinoma in situ is also observed. MICROSCOPIC DESCRIPTION Slides are reviewed. GROSS DESCRIPTION A. Received in formalin labeled with the patient's name and date of . Designated as " bladder tumor" is a 2.7 x 1.6 x 0.2 cm aggregate of nino to light brown, irregular, cauterized tissue fragments. Entirely submitted in 1 cassette. [place] 07/22/2025 CPT:16623
== END 2025-07-21 16:21 | disposition home or self-care (01) ==
LOC: SDC 13:19 → AC 13:21
PROVIDERS: Referring Provider Urology; Visit Provider Urology
DX: C67.6 Malignant neoplasm of ureteric orifice (principal); R31.0 Gross hematuria; N32.89 Other specified disorders of bladder; F17.200 Nicotine dependence, unspecified, uncomplicated
CPT/HCPCS: 52224; 00910; 88305; 88307; J9280